=== PATIENT | male | born 1955 | race Caucasian/White ===

== ENCOUNTER 2018-03-19 12:27 | Day surgery (SDC) | payer BC ==
[~2018-03-19 12:27] MED LIST: Buffered Lidocaine 0.9% SYRIN* 5 ML/SYR SYRINGE INTRADERM ONE; Dexamethasone TAB* 4 MG PO ONE; DiMENhydriNATE IV* 50 MG/ML VIAL IV PUSH PRN; Famotidine IV* 10 MG/ML 2 ML (20 mg) IV ONE; Morphine INJ* 2 MG/ML 1 ML CARPUJECT IV PRN; Naloxone* 0.4 MG/ML 1 ML VIAL IV PRN; Ondansetron INJ* 2 MG/ML VIAL ONE; PROCHLORPERAZINE INJ 5 MG/ML 2 ML VIAL IV PRN; Scopolamine 1.5 mg* PATCH TRANSDERM PRN; fentaNYL* 50 MCG/ML 2 ML VIAL (100 MCG VIAL) IV PRN; oxyCODONE/Acetamin 5/325 MG* TAB PO PRN
[2018-03-19] MEDS ORDERED: Dexamethasone TAB* 4 MG ONE (12:31)
[2018-03-19] MEDS ORDERED: Famotidine IV* 10 MG/ML 2 ML (20 mg) ONE (12:31)
[2018-03-19] MEDS ORDERED: Ondansetron ODT TAB* 4 MG ONE (12:31)
[2018-03-19] MEDS ORDERED: Buffered Lidocaine 0.9% SYRIN* 5 ML/SYR SYRINGE ONE (12:32)
[2018-03-19] MEDS ORDERED: Clindamycin 900 MG IVPREMIX(* 900 MG/50 ML SDV IV ONE (12:32)
[2018-03-19] MEDS ORDERED: fentaNYL* 50 MCG/ML 2 ML VIAL (100 MCG VIAL) ONE (12:45)
[2018-03-19] MEDS ORDERED: Midazolam* 1 MG/ML 5 ML VIAL (5 MG) ONE (12:45)
[2018-03-19] MEDS ORDERED: Atracurium* 10 MG/ML 10 ML VIAL ONE ×2 (12:46→15:15)
[2018-03-19] MEDS ORDERED: hydrALAZINE IV* 20 MG/ML VIAL ONE (15:54)
--- NOTE | 2018-03-19 16:04 | BRIEFOPN ---
Brief Operative Note - Surgery Procedures: OPERATIVE REPORT PRE-OP: left inguinal hernia POST-OP: Left indirect inguinal hernia PROCEDURE: Totally extraperitoneal laproscopic repair of left indirect inguinal hernia with mesh SURGEON: MD Cadence ANESTHESIA:Local with General ; [place] ASST: Jef Rodney NP; RADHA Castano IVF: min EBL:min SPECIMEN:none DRAIN: none WOUND CLASS: One COMPLICATIONS: none TO PACU
[2018-03-19] MEDS ORDERED: Acetaminop/Codeine 30 MG TAB* 1 TAB (300 MG/30 MG) ONE (16:54)
[2018-03-19 17:54] VITALS: BP 133/72
--- NOTE | 2018-03-20 19:28 | OP ---
DATE OF OPERATION: 03/19/18 - [facility] DATE OF : 51 SURGEON: Vitaly Vila MD [employer] INTERVIEWER: Armida Rodney NP and RADHA Larios ANESTHESIOLOGIST: Dr. Valdez. ANESTHESIA: General with local. PRE-OP DIAGNOSIS: Left inguinal hernia. POST-OP DIAGNOSIS: Left indirect inguinal hernia. OPERATIVE PROCEDURE: Totally extraperitoneal laparoscopic repair of left indirect inguinal hernia with mesh. ESTIMATED BLOOD LOSS: Minimal. SPECIMENS: None. COMPLICATIONS: None. DRAINS: None. WOUND CLASSIFICATION: I. DESCRIPTION OF PROCEDURE: Written and informed consent was obtained. The abdomen was marked with indelible ink and preoperative antibiotics were administered. The patient was taken to the operating room and placed in the supine position. Sequential compression devices and Joseph catheter were inserted. General anesthesia was administered. A Joseph catheter was placed. The abdomen and groins were prepped and draped in the usual sterile fashion. Time-out verification was completed. Initially, a small transverse incision was made just to the left of midline and carried down to the anterior rectus fascia. This was divided in a transverse orientation and the underlying rectus muscle was retracted laterally to expose the posterior sheath. The space directly inferior on the midline was then directed, and the pacemaker balloon was passed without difficulty down to the pubic tubercle. The pacemaker balloon was then inflated with about 12 pumps of the hand pump under direct vision of the camera to develop the preperitoneal space. Once this was done, the balloon was removed and a 12-mm blunt port was inserted into the preperitoneal space and this area was insufflated to 12 mmHg. The patient was placed in the Trendelenburg position. It was evident that the space was of adequate size and two 5-mm ports were then placed in the midline inferior to the umbilicus in the usual fashion under direct vision. Dissection then commenced at the midline with identifying the pubic tubercle and Henry's ligament, on the left side. There appeared to be no evidence of a direct or femoral hernia. The epigastric vessels were then identified coming up on the anterior abdominal wall in their expected position and protected from injury throughout the remainder of the case. The space lateral to the epigastric vessels was also developed and the ileopubic tract was identified as well as the anterior abdominal wall out to the iliac crest. I then identified the peritoneal reflection laterally and followed this medially. It appeared that the peritoneal sac extended down into the internal ring. The indirect hernia sac was then reduced from the internal ring using careful grasper dissection. The spermatic cord and vas deferens were identified and protected from injury throughout the case. There was also a rather large cord lipoma, which was reduced from the internal ring back into the retroperitoneum as well. Once this dissection was complete and I felt the peritoneal reflection was dissected posteriorly enough, a 10 cm x 15 cm Covidien ProGrip mesh was rolled up and then placed into the extraperitoneal space and unfurled to cover the pubic tubercle and Henry's ligament and the anterior abdominal wall all the way out to the iliac crust in usual fashion. The direct and indirect spaces appeared to be covered nicely and I assured myself that the peritoneum was dissected and reflected well back along the retroperitoneum from the mesh itself. Once I was sure that there had been no wrinkling and hemostasis was assured under direct vision, the mesh was held along the anterior wall and retroperitoneum with instruments as we desufflated the extraperitoneal space. All ports were removed and the anterior rectus fascia was closed with interrupted 0 Vicryl suture. The skin at all three incisions were approximated with subcuticular 4-0 Vicryl suture. Steri-Strips were applied. The patient tolerated the procedure well and was taken to the recovery room in stable condition. [id number]/CPS #: [id number] ELLIE
[2018-03-22] MEDS ORDERED: Scopolamine PATCH Remove* 1 NOTE MISC PATCH OFF ONE (05:54)
== END 2018-03-19 17:56 | disposition home or self-care (01) ==
LOC: OR 12:27
PROVIDERS: ATTEND Surgery
DX: K40.90 Unilateral inguinal hernia, without obstruction or gangrene, not specified as recurrent (principal); I10 Essential (primary) hypertension; E78.5 Hyperlipidemia, unspecified; G25.81 Restless legs syndrome
CPT/HCPCS: A9270-GY; J0360; J2250; J3010; J8540

== ENCOUNTER 2023-10-09 05:39 | Observation (INO) ==
[2023-10-09] MEDS ORDERED: Famotidine IV 10 MG/ML 2 ml VIAL (20 mg) IV ONE (06:00)
[2023-10-09] MEDS ORDERED: Lactated Ringers 1000 ml BAG 1,000 ML IV SCH (06:00)
[2023-10-09] MEDS ORDERED: Buffered Lidocaine 1% SYRIN 1 ml INTRADERM ONE (06:00)
[2023-10-09] MEDS ORDERED: Famotidine IV 10 MG/ML 2 ml VIAL (20 mg) ONE (06:10)
[2023-10-09] MEDS ORDERED: Clindamycin 900 MG/50 **NS BAG 900 MG/50 ML BAG ONE (06:30)
[2023-10-09] MEDS ORDERED: fentaNYL 100 mcg/2 ml 50 MCG/ML VIAL ONE (06:40)
[2023-10-09] MEDS ORDERED: Ondansetron 4 mg VIAL 2 MG/ML 2 ml VIAL ONE (06:40)
[2023-10-09] MEDS ORDERED: Rocuronium 50 mg VIAL 10 mg/ml 5 ml VIAL (50 mg) ONE (06:40)
[2023-10-09] MEDS ORDERED: Midazolam 2 mg/2 ml VIAL 1 mg/ml 2 ml VIAL (2 mg) ONE (06:40)
[2023-10-09] MEDS ORDERED: Dexamethasone IV 4 MG/ML VIAL 1 ml VIAL ONE (06:40)
[2023-10-09] MEDS ORDERED: Propofol 10 MG/ML 20 ML BTL ONE (06:40)
[2023-10-09] MEDS ORDERED: Lidocaine 2% PF 5 ML VIAL ONE (06:40)
[2023-10-09] MEDS ORDERED: Sevoflurane BOTTLE ONE (06:46)
[2023-10-09] MEDS ORDERED: Ondansetron 4 mg VIAL 2 MG/ML 2 ml VIAL IV PRN ×2 (07:17→07:47)
[2023-10-09] MEDS ORDERED: Gentamicin ADULT 300 MG in NS 0.9% 100 ml BAG 100 ML IVPB ONE (07:30)
[2023-10-09] MEDS ORDERED: Naloxone 0.4 mg VIAL 0.4 mg/ml 1 ml VIAL IV PRN (07:47)
[2023-10-09] MEDS ORDERED: fentaNYL 100 mcg/2 ml 50 MCG/ML VIAL IV PRN (07:47)
[2023-10-09] MEDS ORDERED: Furosemide 20 mg/2 ml IV VIAL ONE (08:41)
[2023-10-09] MEDS: Neomycin/Polym/Bacit TOP OINT 15 GM TOPICAL SCH ×4 (11:26→20:53)
[2023-10-09] MEDS: Magnesium Hydroxide LIQ 30 ML UDC PO SCH ×2 (11:26→20:51)
[2023-10-09] MEDS: NS 0.9% 1000 ml BAG 1,000 ML IV SCH ×2 (11:42→19:45)
[2023-10-09] MEDS ORDERED: CMCS:Alfuzosin ER 10 mg TAB.ER (NF) 10 MG TAB.ER PO SCH (21:00)
[2023-10-10] MEDS: NS 0.9% 1000 ml BAG 1,000 ML IV SCH (03:25)
[2023-10-10 05:34] VITALS: BP 124/70
[2023-10-10] MEDS ORDERED: ROTIGOTINE INTRADERM SCH (09:00)
== END 2023-10-10 09:05 | disposition home or self-care (01) ==
LOC: SSU 05:39 → OR 05:39
PROVIDERS: ADMIT Urology; ATTEND Urology